=== PATIENT | female | born 1960 | race Two or more races ===

== ENCOUNTER 2021-02-11 16:45 | Emergency (ER) | payer OTHER ==
[~2021-02-11] VITALS: Ht 165.1 cm; Wt 72.6 kg
[2021-02-11] MEDS ORDERED: LIPITOR40 M1 (17:33)
[2021-02-11] MEDS ORDERED: SIMVASTATIN5 MG (17:33)
== END 2021-02-11 22:24 | disposition home or self-care (01) ==
LOC: ER 16:45
DX: R42 Dizziness and giddiness (principal); R51.9 Headache, unspecified